=== PATIENT | male | born 1930 | race Caucasian/White ===

== ENCOUNTER → 2016-03-05 | Outpatient (CLI) | payer MEDICARE | LOC: GMAM 16:59 | PROVIDERS: ATTEND Family Medicine | DX: D53.9 Nutritional anemia, unspecified (principal) ==

== ENCOUNTER 2017-02-23 17:41 | Emergency (ER) | payer MEDICARE ==
--- NOTE | 2017-02-23 18:01 | ED.PDOC ---
History of Present Illness - General Chief Complaint: Trauma Stated Complaint: Fell, laceration to head Time Seen by Provider: 02/23/17 17:59 Source: EMS notes reviewed, family - - History of Present Illness Initial Comments: Manny Humphries 86 y/o male brought by ems after slipping while going to the bathroom with walker and lost his footing slipped and falling at home and head landed on the coffee table was at home with him and she noted blood on his scalp.No LOC,no syncopal episode,Then EMS was then called up Occurred: this evening Injuries/Pain Location: head - scalp Loss of Consciousness: no loss of consciousness Improving Factors: nothing Worsening Factors: nothing Associated Symptoms (Fall): denies symptoms Allergies/Adverse Reactions: Allergies NO KNOWN ALLERGY Allergy (Verified 05/30/15 18:28) Home Medications: Ambulatory Orders Apixaban [Eliquis] 5 mg PO DAILY 05/30/15 Atorvastatin Calcium [Lipitor] 10 mg PO DAILY 02/23/17 Finasteride [Proscar] 5 mg PO DAILY 02/23/17 Metoprolol Succinate [Metoprolol Succinate ER] 100 mg PO DAILY 02/23/17 Review of Systems - Review of Systems Constitutional: States: no symptoms reported EENTM: States: no symptoms reported Respiratory: States: no symptoms reported Cardiology: States: no symptoms reported Gastrointestinal/Abdominal: States: no symptoms reported Genitourinary: States: no symptoms reported Musculoskeletal: States: no symptoms reported Skin: States: see HPI, other - scalp Neurological: States: no symptoms reported Past Medical History (General) - Patient Medical History Hx Seizures: No Hx Stroke: No Hx Asthma: No Hx of COPD: Yes Hx Cardiac Disorders: Yes - CHF, A-Fib Hx Congestive Heart Failure: Yes Hx Pacemaker: No Hx Hypertension: Yes Hx Diabetes: No Hx Cancer: Yes - skin Hx MRSA: No Surgical History: pacemaker - Vaccination History Hx Influenza Vaccination: - unknown - Social History Hx Alcohol Use: Yes - wine Hx Substance Use: No Hx Physical Abuse: No Hx Emotional Abuse: No - Activities of Daily Living Grooming Ability: Independent Toileting Ability: Independent Physical Exam - Physical Exam General Appearance: Alert, Comfortable, No apparent distress Head Injury: active bleeding - scalp Eye Exam: bilateral normal ENT Exam: hearing grossly normal, no evidence of ENT injury, no dental injury Peripheral Pulses: radial,right: 2+, radial,left: 2+ Cardiovascular/Respiratory: regular rate, rhythm, normal peripheral pulses, no respiratory distress Gastrointestinal/Abdominal: normal bowel sounds, non tender, soft, no organomegaly Extremity Exam: no evidence of injury, normal range of motion Neurologic: no motor/sensory deficits, alert, oriented x 3 - Kenny Coma Score Best Eye Response ([place]): (4) open spontaneously Best Verbal Response ([place]): (5) oriented Best Motor Response ([place]): (6) obeys commands [place] Total: 15 Progress - Progress Progress: 02/23/17 20:26 Last Vital Signs Temp 97.8 F 02/23/17 20:04 Pulse 62 02/23/17 20:04 Resp 20 02/23/17 20:04 BP 154/92 02/23/17 20:04 Pulse Ox 97 02/23/17 20:04 02/23/17 20:39 Presure dressing applied initially bleeding stopped then went to head ct then on his return to er room no further bleeding noted and was re wrapped again with 4x4 and applied stretch bandage and coban.Patient able to sit himself up the bed without assistance;talking to . - EKG/XRAY/CT CT Ordered: Yes - head no intracranial abnormality Departure - Departure Clinical Impression: Fall against object Laceration of skin of scalp Qualifiers: Encounter type: initial encounter Qualified Code(s): S01.01XA - Laceration without foreign body of scalp, initial encounter Time of Disposition: 20:43 Disposition: Discharge to Home or Self Care Departure Forms: ED Discharge - Pt. Copy, Patient Portal Self Enrollment Instructions: DI for Laceration Repair, DI for Minor Laceration Referrals: Manny Hollingsworth MD [Primary Care Provider] - 1-2 Weeks Home Medications: Ambulatory Orders Apixaban [Eliquis] 5 mg PO DAILY 05/30/15 Atorvastatin Calcium [Lipitor] 10 mg PO DAILY 02/23/17 Finasteride [Proscar] 5 mg PO DAILY 02/23/17 Metoprolol Succinate [Metoprolol Succinate ER] 100 mg PO DAILY 02/23/17 Additional Instructions: RETURN TO EMERGENCY ROOM NEEDED REMOVE DRESSING 02/25/2017
--- NOTE | 2017-02-23 18:44 | CT ---
EXAM DESCRIPTION: Head CLINICAL HISTORY: head contusion COMPARISON: None Available TECHNIQUE: Contiguous axial CT images of the head were obtained. Coronal and sagittal reconstructions were created from the axial data. This exam was performed according to our departmental dose-optimization program, which includes automated exposure control, adjustment of the mA and/or kV according to patient size and/or use of iterative reconstruction technique. FINDINGS: There is soft tissue attenuation in the left superior scalp fat near the vertex. There is a small amount of gas within it, suggesting laceration. There is no evidence of acute mass, mass effect, midline shift or hemorrhage. The ventricles and extra-axial CSF spaces are unremarkable. The brain parenchyma appears normal for the patient's age. No acute abnormalities of the bones is seen. IMPRESSION: No acute intracranial abnormality. Electronically signed by: Shahid Youssef 02/23/2017 6:42 PM [facility]
[2017-02-23 18:53] VITALS: O2SAT 97
[2017-02-23] MEDS ORDERED: NEOMYCIN-BACITRACIN-POLYMYXIN 0.9 GM UD TOP ONE (19:57)
[2017-02-23 20:06] VITALS: BP 154/92; TEMP 97.8
== END 2017-02-23 21:15 | disposition home or self-care (01) ==
LOC: ER 17:41
DX: S01.01XA Laceration without foreign body of scalp, initial encounter (principal); J44.9 Chronic obstructive pulmonary disease, unspecified; I50.9 Heart failure, unspecified; I48.91 Unspecified atrial fibrillation; I11.0 Hypertensive heart disease with heart failure; Z95.0 Presence of cardiac pacemaker; Z85.828 Personal history of other malignant neoplasm of skin; Z79.899 Other long term (current) drug therapy; W01.190A Fall on same level from slipping, tripping and stumbling with subsequent striking against furniture, initial encounter; Y92.009 Unspecified place in unspecified non-institutional (private) residence as the place of occurrence of the external cause; Y93.89 Activity, other specified

== ENCOUNTER 2017-08-01 09:43 | Inpatient (IN) | payer MEDICARE ==
[2017-08-01] MEDS ORDERED: SODIUM CHLORIDE 0.9% 500ML 500 ML IVS ONE (10:06)
--- NOTE | 2017-08-01 10:10 | ED.PDOC ---
History of Present Illness - General Chief Complaint: Trauma Stated Complaint: s/p fall Time Seen by Provider: 08/01/17 10:03 Source: patient - History of Present Illness Timing/Duration: unsure Severity: moderate Improving Factors: nothing Worsening Factors: nothing Associated Symptoms: malaise, weakness, other - possible loss of consciousness Allergies/Adverse Reactions: Allergies NO KNOWN ALLERGY Allergy (Verified 05/30/15 18:28) Home Medications: Ambulatory Orders Apixaban [Eliquis] 2.5 mg PO DAILY 05/30/15 Atorvastatin Calcium [Lipitor] 10 mg PO BEDTIME 02/23/17 Metoprolol Succinate [Metoprolol Succinate ER] 100 mg PO DAILY 02/23/17 Carbamide Peroxide Otic [Debrox Otic] 4 drop OT PRN 08/01/17 Cyanocobalamin Inj [Vitamin B-12 Inj] 1 ml IM MONTHLY 08/01/17 Folic Acid 1 mg PO DAILY 08/01/17 Furosemide [Lasix] 20 mg PO PRN 08/01/17 Ibuprofen [Advil] 1 - 2 mg PO Q6H PRN 08/01/17 Potassium Chloride [Micro-K] 8 meq PO PRN 08/01/17 Review of Systems - Review of Systems Constitutional: States: weakness. Denies: chills, fever EENTM: States: no symptoms reported Respiratory: Denies: cough, short of breath Cardiology: States: syncope. Denies: chest pain, edema Gastrointestinal/Abdominal: Denies: abdominal pain, nausea, vomiting Genitourinary: States: no symptoms reported Musculoskeletal: States: muscle pain Skin: States: other - abrasions to L arm Neurological: States: weakness. Denies: headache Endocrine: States: no symptoms reported Hematologic/Lymphatic: States: no symptoms reported Past Medical History (General) - Patient Medical History Hx Seizures: No Hx Stroke: No Hx Asthma: No Hx of COPD: Yes Hx Cardiac Disorders: Yes - CHF, A-Fib Hx Congestive Heart Failure: Yes Hx Pacemaker: No Hx Hypertension: Yes Hx Diabetes: No Hx Cancer: Yes - skin Hx MRSA: No - Vaccination History Hx Influenza Vaccination: - unknown Hx Pneumococcal Vaccination: - unknown - Social History Hx Tobacco Use: Yes Hx Alcohol Use: Yes - wine Hx Substance Use: No Hx Physical Abuse: No Hx Emotional Abuse: No Family Medical History - Family History Father Family History: Unknown Living Status: Age at (years of age): 72 Cause of : [place] Physical Exam - Physical Exam General Appearance: Alert, Comfortable, No apparent distress Eye Exam: bilateral normal Ears, Nose, Throat: normal ENT inspection Neck: non-tender, full range of motion Respiratory: chest non-tender, lungs clear, normal breath sounds Cardiovascular/Chest: no edema, tachycardia, irregularly irregular Gastrointestinal/Abdominal: normal bowel sounds, non tender, soft Extremity: normal range of motion, no pedal edema, no calf tenderness, other - abrasions to L forearm Neurologic: alert, normal mood/affect, oriented x 3 Skin Exam: normal color, warm/dry Progress - EKG/XRAY/CT EKG: Atrial, Fibrillation, LBBB Comments: rate 114, QRS 154, QTc 526 Departure - Departure Clinical Impression: Alcohol abuse Sepsis Qualifiers: Sepsis type: sepsis due to unspecified organism Qualified Code(s): A41.9 - Sepsis, unspecified organism UTI (urinary tract infection) due to urinary indwelling catheter Qualifiers: Indwelling urinary catheter type: indwelling urethral catheter Encounter type: initial encounter Qualified Code(s): T83.511A - Infection and inflammatory reaction due to indwelling urethral catheter, initial encounter; N39.0 - Urinary tract infection, site not specified Atrial fibrillation Qualifiers: Atrial fibrillation type: chronic Qualified Code(s): I48.2 - Chronic atrial fibrillation Disposition: Admit Patient Condition: Serious Departure Forms: ED Discharge - Pt. Copy, Patient Portal Self Enrollment Instructions: DI for Trauma Referrals: Manny Hollingsworth MD [Primary Care Provider] - 1-2 Weeks Home Medications: Ambulatory Orders Apixaban [Eliquis] 2.5 mg PO DAILY 05/30/15 Atorvastatin Calcium [Lipitor] 10 mg PO BEDTIME 02/23/17 Metoprolol Succinate [Metoprolol Succinate ER] 100 mg PO DAILY 02/23/17 Carbamide Peroxide Otic [Debrox Otic] 4 drop OT PRN 08/01/17 Cyanocobalamin Inj [Vitamin B-12 Inj] 1 ml IM MONTHLY 08/01/17 Folic Acid 1 mg PO DAILY 08/01/17 Furosemide [Lasix] 20 mg PO PRN 08/01/17 Ibuprofen [Advil] 1 - 2 mg PO Q6H PRN 08/01/17 Potassium Chloride [Micro-K] 8 meq PO PRN 08/01/17 Critical Care Note - Critical Care Note Total Time (mins): 35 Comments: presentation: weakness with a fall; Findings: UTI, LFT's elevated, elevated serum lactate; Actions: Saline iv bolus, blood and urine cultures, IV Rocephin , admission; Systems at risk: cardiovascular, urinary
--- NOTE | 2017-08-01 11:04 | RAD ---
EXAM: XR Chest, 1 View CLINICAL HISTORY: The patient is 87 years old and is Male; weakness TECHNIQUE: Frontal view of the chest. COMPARISON: Prior study from 05/26/2015 FINDINGS: LUNGS: No focal consolidation is identified. Patient's chin obscures the medial lung apices. PLEURAL SPACE: There is no pneumothorax. No pleural effusions are present. HEART: Unremarkable. No cardiomegaly. MEDIASTINUM: Unremarkable. BONES/JOINTS: Unremarkable .No acute fracture noted. VASCULATURE: The aortic knob is calcified. The aorta is tortuous. TUBES, LINES AND DEVICES: There is a new single lead left-sided pacemaker in place with leads projecting over the RIGHT ventricle. Electrocardiogram leads are again noted. UPPER ABDOMEN: There is mild elevation of the LEFT hemidiaphragm. 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 IMPRESSION: No active disease is seen in the chest. New pacemaker as described. Electronically signed by: Hussain Tineo MD 08/01/2017 11:01 AM CDT Electronically signed by: Hussain Tineo MD 08/01/2017 11:03 AM CDT
[2017-08-01] MEDS ORDERED: POVIDONE IODINE 10 % 15 ML UD TOP ONE (11:08)
[2017-08-01] MEDS ORDERED: cefTRIAXone SODIUM 1 GM in SODIUM CHL 0.9% 50ML MIN-BAG+ 50 ML IVPB ONE (11:27)
[2017-08-01] MEDS ORDERED: cefTRIAXone SODIUM 1 GM VIAL ONE (11:28)
[2017-08-01] MEDS ORDERED: SODIUM CHL 0.9% 50ML MIN-BAG+ 50 ML IVPB ONE ×3 (11:28→19:51)
--- NOTE | 2017-08-01 13:19 | HP ---
SUPERVISING PHYSICIAN: Manny Hollingsworth M.D. CHIEF COMPLAINT: Fall. HISTORY OF PRESENT ILLNESS: Mr. Humphries is an 87 year-old male patient that presented to the Emergency Room via EMS today. He had gotten up to go to the bathroom and fell between the toilet and tub, and was unable to stand up. On arrival, EMS stood him up at which time he had a significant decrease in his blood pressure and he passed out. He presented to the Emergency Department and denied any other complaints. No chest pains. No shortness of breath. He does have a history of a chronic indwelling Eason catheter. His also notes that the patient has been falling several times in the last week and over the last several weeks has not eaten any significant amount of nutrition. He also has a habit of drinking 3 to 6 glasses of wine a day. His workup in the Emergency Department showed that he was afebrile, temperature 97.7 and his white count was normal, but there was a left shift noted. Chemistries showed that he had a lactic acid of 4.5 as well as his liver functions were elevated. Urinalysis showed that he had a small amount of blood on the dipstick with leukoesterase, 5 to 10 WBCs and 1+ bacteria. His reports that his catheter was last changed by home health this past Wednesday. X-ray was completed and per radiology interpretation of a single view chest there was no active disease seen in the chest. There was a pacemaker noted. Hemodynamically the patient was shown to be normotensive with a blood pressure initially of 131/70 with heart rate 109. He was satting 99% on room air. Given the patient's underlying chronic illness and multiple co- morbidities and the lactic acid that was elevated along with the urinary tract infection, there were concerns for possible sepsis. Blood cultures were completed and he was started initially on Rocephin and now is going to be admitted to the Medical/Surgical floor for further initiation of sepsis protocol for concerns for urinary tract infection resulting in sepsis syndrome. The patient was admitted in stable condition. PAST MEDICAL HISTORY: 1. Atrial fibrillation on Eliquis. 2. History of congestive heart failure with a chronic diastolic mechanism due to hypertension and most recent echocardiogram showing to be 04/2015 with an ejection fraction of 60%. 3. Hyperlipidemia. 4. Chronic alcohol abuse, approximately 6 glasses of wine per day. 5. Dementia. 6. 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 PAST SURGICAL HISTORY: 1. Right kidney stone removal. 2. Detached retina in 2000. 3. Pacemaker implantation. HOME MEDICATIONS: 1. Potassium chloride 8 mEq p.r.n. 2. Lopressor 100 mg daily. 3. Ibuprofen 1 to 2 every 6 hours as needed. 4. Lasix 20 mg daily as needed. 5. Folic acid 1 mg daily. 6. Vitamin B12 one injection monthly. 7. Debrox 4 drops both eyes b.i.d. as needed. 8. Lipitor 10 mg at bedtime. 9. Eliquis 2.5 mg daily. ALLERGIES: NO KNOWN DRUG ALLERGIES. FAMILY HISTORY: Father at age 72 from a heart attack. Mother with a history of chronic obstructive pulmonary disease. 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 He is and has 3 children. He currently lives in [place] with his . He has had a history of smoking but quit previously in 1969. He has a history of alcohol abuse and currently drinks 6 to 7 glasses or wine a day. REVIEW OF SYSTEMS: Difficult to obtain secondary to the patient's significantly decreased hearing. CONSTITUTIONAL: No reported fevers but he has general malaise and ongoing weakness. HEENT: History of severe hearing deficit but no noted nasal congestion, sore throat or ear aches. RESPIRATORY: No reported coughing, wheezing or shortness of breath. CARDIOVASCULAR: No reported edema, chest pains or palpitations. GASTROINTESTINAL: No reported nausea, vomiting, abdominal pains, constipation or diarrhea. GENITOURINARY: Has a chronic Eason in place having been last changed this past Wednesday. INTEGUMENT: Bruises easily as he is on Eliquis and has old abrasions to the left arm from multiple falls. NEUROLOGIC: He does have bilateral weakness. No focal motor deficits noted. No headaches. No seizure activities. No ataxia. PHYSICAL EXAMINATION: VITAL SIGNS: Temperature 98.3, pulse 87, blood pressure 141/87, respirations 16 , satting 97% on room air. Admission weight is 103.0 kg. GENERAL: The patient is disheveled. Appears to be in no acute distress. HEENT: Tympanic membranes are clear bilaterally. Oropharynx was pink with some dry mucosal membranes but no lesions. NECK: Supple, non-tender with full range of motion. CHEST: Lungs were clear to auscultation bilaterally without any rhonchi, wheezing or rales. CARDIOVASCULAR: Slightly irregular rate and rhythm but no palpitations or rubs or discernible murmurs. GASTROINTESTINAL: No tenderness on palpation. No rebound tenderness. Abdomen is soft and obese with otherwise normal bowel sounds. EXTREMITIES: No clubbing, cyanosis or edema. There are abrasion on the left arm. NEUROLOGIC: He is alert and oriented times three. Cranial nerves II-XII are grossly intact. Facial features were symmetrical. Extraocular movements are within normal limits. There was no notable nystagmus. LABORATORY: CBC showed a white count of 6,800 with hemoglobin 13.8, hematocrit 40.1, platelet count 119,000. RBC indices indicate a macrocytic/hyperchromic presentation and there is a left shift on the differential. Blood gas analysis showed a normal pH of 7.37, bicarb 17, PCO2 was 31, PO2 was 199 with ABG on room air satting 95%. Carboxyhemoglobin 0.3. Chemistries showed hyponatremia of 130 with an elevated anion gap of 20.3, creatinine 1.0, BUN 9, glucose 94, calcium 9.0, lactic acid initially was elevated at 4.5. Liver functions showed to be elevated with a total bilirubin of 1.3, AST 214, ALT 144. Urinalysis showed a trace of intact blood with trace blood with small amount of leukocyte esterase with 0 to 1 RBCs, 5 to 10 WBCs, no epithelials, 1+ bacteria. He did have 1 occult blood in the E. R. that was negative. MICROBIOLOGY: Blood cultures are pending. Urine culture is pending. RADIOLOGY: Initially in the Emergency Department he had a chest x-ray and per radiology interpretation showed no active disease in the chest. New pacemaker was noted. ASSESSMENT: 1. Sepsis with concern for possible bacteremia secondary to underlying urinary tract infection with the patient having a history of chronic indwelling Eason catheter. 2. Recent multiple falls same level with no mention of loss of consciousness likely secondary to progressive weakness due to poor nutritional intake and current acute urinary tract infection with sepsis syndrome. 3. Sepsis syndrome with elevated lactic acid, elevated liver function tests, tachycardia and source of infection noted to be urinary tract infection with cultures pending. 4. Chronic alcohol abuse with a history of drinking approximately 4 to 6 glasses of wine daily. 5. Severe hearing loss bilaterally. 6. Chronic atrial fibrillation with controlled ventricular rate on Eliquis. 7. Dementia which is exacerbated by an ongoing alcoholism. 8. Chronic congestive heart failure with a diastolic dysfunction grade 2 with last echocardiogram showing in 04/2015 with an ejection fraction of 60%. 9. Electrolyte imbalance to include a mild hyponatremia. 10. Metabolic acidosis with partial compensation with an elevated lactic acid as well as an elevated anion gap. PLAN: The patient is going to be admitted for sepsis protocol with concerns for possible bacteremia secondary to urinary tract infection. Urine cultures were collected. Blood cultures were also collected and then he was started on antibiotics initially to include Rocephin. Given his lactic acid is elevated at 4.5 and the patient does have a longstanding history of chronic Eason catheter with infections last noted to be Enterococcus and a history of alcoholism, will start the patient on Meropenem and await final culture results to further target antibiotic therapy. Once those are back, we can certainly deescalate his regimen according to the current sensitivity available. I will go ahead and give him another liter of fluid over 2 hours and start him on maintenance fluid with D5 normal saline with 20 of potassium running at 80 an hour. I will plan to recheck his lactic acid in 4 to 6 hours and adjust fluids and treatment according to results. Right now the patient is showing to be hemodynamically stable with a controlled ventricular rate. Will continue with his home medications as appropriate including Eliquis for DVT prophylaxis. The patient will need a physical therapy consultation due to his multiple falls. Will need to closely observe the patient for any signs or symptoms of early alcohol withdrawal and DTs. I will also exchange the current Eason for a clean Eason and do another urinalysis. Will anticipate his length of stay to be 2 to 3 days. The patient does live with his but is very little assistance and the patient will possibly need ongoing physical therapy given his increase in weakness and current alcoholism along with severe deconditioning and multiple falls. He will also need a nutritional consultation. I will go ahead and start him on daily banana bag with thiamine and start him on some folic acid. Until discharge, will continue to monitor and treat appropriately. #[id number] [facility]
[2017-08-01] MEDS ORDERED: SODIUM CHLORIDE 0.9% (FLUSH) 10 ML SYG IV PRN (13:55)
[2017-08-01] MEDS ORDERED: IBUPROFEN 400 MG TAB PO PRN (13:58)
[2017-08-01] MEDS ORDERED: KCL 20MEQ/D5NS 1,000 ML IVS PRN (14:00)
[2017-08-01] MEDS ORDERED: SODIUM CHLORIDE 0.9% 1000ML 1,000 ML IVS ONE (14:01)
[2017-08-01] MEDS: IV SET AND CAP CHANGE INJ INJ SCH (14:13)
[2017-08-01] MEDS ORDERED: MEROPENEM 1 GM VIAL IVPB ONE ×2 (14:15→19:52)
[2017-08-01] MEDS: MEROPENEM 1 GM in SODIUM CHL 0.9% 50ML MIN-BAG+ 50 ML IVPB SCH ×2 (14:16→22:23)
[2017-08-01] MEDS ORDERED: CARBAMIDE PEROXIDE OTIC 15 ML BTTL OTIC PRN (14:30)
[2017-08-01] MEDS ORDERED: PANTOPRAZOLE SODIUM IV 40 MG VIAL IV ONE (18:29)
--- NOTE | 2017-08-01 18:31 | PCM.CORE ---
Physician DVT/VTE - Prophylaxis Currently: Patient already on anticoagulation therapy - marilin - Nurse DVT Assessment & Total Each Risk Factor Represents 3 Points: Age over 75 years, Medical PT with Hx of NM, CHF, Severe infection/sepsis Each Risk Factor Represents 1 Point: Medical PT at Bed Rest DVT Assessment Score: 7 - 5 or more Very High Risk Treatments: Early Ambulation *, Sequential Compression Device
[2017-08-01] MEDS ORDERED: THIAMINE HCL INJ 100 MG/ML VIAL ONE (18:35)
[2017-08-01] MEDS ORDERED: SODIUM CHLORIDE 0.9% 1000ML 1,000 ML ONE (18:35)
[2017-08-01] MEDS ORDERED: MULTIPLE VITAMIN 10 ML VIAL ONE (18:36)
[2017-08-01] MEDS: MULTIPLE VITAMIN INJ 10 ML, THIAMINE HCL INJ 100 MG in SODIUM CHLORIDE 0.9% 1000ML 1,00... IVS SCH (18:43)
[2017-08-01] MEDS: ATORVASTATIN 10 MG TAB PO SCH (20:36)
[2017-08-01] MEDS ORDERED: chlordiazePOXIDE HCL 25 MG CAP PO ONE (23:03)
[2017-08-02] MEDS ORDERED: SODIUM CHL 0.9% 50ML MIN-BAG+ 50 ML IVPB ONE ×3 (05:13→22:49)
[2017-08-02] MEDS ORDERED: MEROPENEM 1 GM VIAL IVPB ONE ×3 (05:14→22:49)
[2017-08-02] MEDS: MEROPENEM 1 GM in SODIUM CHL 0.9% 50ML MIN-BAG+ 50 ML IVPB SCH ×3 (06:07→22:52)
[2017-08-02] MEDS ORDERED: PANTOPRAZOLE SODIUM IV 40 MG VIAL IV SCH (06:30)
[2017-08-02] MEDS: METOPROLOL TARTRATE 50 MG TAB PO SCH (07:38)
[2017-08-02] MEDS: FOLIC ACID 1 MG TAB PO SCH (08:44)
[2017-08-02] MEDS: APIXABAN 2.5 MG TAB PO SCH (08:44)
[2017-08-02] MEDS ORDERED: METOPROLOL SUCCINATE XL 100 MG TAB PO SCH (09:00)
[2017-08-02] MEDS: DEX 5% W/NACL 0.9% 1000ML 1,000 ML IVS PRN (11:56)
--- NOTE | 2017-08-02 13:28 | PN ---
SUPERVISING PHYSICIAN: Ashish De Souza MD DATE: 08/02/17 SUBJECTIVE: The patient is very, very hard of hearing, but he indicates that he feels okay. In speaking with his at the bedside as well as the nurses, the patient has not been eating very much. He has a barium swallow study tomorrow ordered. Additionally, his was concerned regarding some sedative medications that he got. She feels like he may have gotten too much, however, he is completely alert at this time. He was quite fidgety and getting confused and probably going towards alcohol withdrawal, so Librium was started, 50 mg q.i.d. I have spoken with his and we may adjust that a little bit. OBJECTIVE: VITAL SIGNS: Blood pressure 117/73. Heart rate 72. Respiratory rate 16. Temperature 98.0. Oxygen saturation 97%. GENERAL: Mr. Humphries is an 87-year-old male patient who is in no active distress currently. NEUROLOGIC: The patient is very hard of hearing, but alert and follows commands. There are no focal deficits. LUNGS: Diminished in the bases, otherwise clear to auscultation bilaterally. CARDIOVASCULAR: Regular rate and rhythm. Normal S1, S2. ABDOMEN: Soft, obese. Positive bowel sounds. EXTREMITIES: Lower extremities with trace ankle edema. Pulses 2+. Capillary refill is less than 2 seconds. LABORATORY: White count 4.7, hemoglobin 11.6, hematocrit 33.1, platelet count 81. Chemistries show sodium 136, potassium 4.2, chloride 100, CO2 24, BUN 12, creatinine 0.99, glucose 114, calcium 8.6, total bilirubin 1.8, AST 96, ALT 94. Cultures are still pending. ASSESSMENT: 1. Sepsis secondary to urinary tract infection. 2. Recent multiple falls. 3. Chronic alcohol abuse. 4. Severe hearing loss. 5. Chronic atrial fibrillation status post pacemaker placement on Eliquis therapy. 6. Dementia. 7. History of diastolic heart failure without acute exacerbation. 8. Electrolyte imbalance. PLAN: At this point, I have adjusted his IV fluids. He is still going to get his banana bag, but also get some additional IV fluids. His urine output is a little bit on the low side. I feel like he is still dry. I discuss with his regarding his Librium. I am going to half a dose, so he is going to get 25 mg of Librium 3 times a day. We will see if he is a little bit less somnolent in her view. To me, he is actually completely alert at this time, but she feels like it is "breaking his spirit." I did indicate to her that he runs of the risk of having alcohol withdrawals due to his chronic alcohol consumption. She is aware of this and aware that he may need the higher dose. Cultures are still pending, so we will continue the current antibiotics. We will recheck labs in the morning as well. His daughter in law is here, and suggests he may need LTAC versus rehab at discharge, which I agree with his recent falls, he definitely may need that as he is too much for his to care for at this time. #[id number] [facility]
[2017-08-02] MEDS: chlordiazePOXIDE HCL 25 MG CAP PO SCH ×2 (14:52→20:33)
[2017-08-02] MEDS ORDERED: FUROSEMIDE INJ 20 MG/2 ML VIAL IV ONE (17:41)
[2017-08-02] MEDS ORDERED: SODIUM CHLORIDE 0.9% 1000ML 1,000 ML ONE (17:55)
[2017-08-02] MEDS ORDERED: THIAMINE HCL INJ 100 MG/ML VIAL ONE (17:55)
[2017-08-02] MEDS ORDERED: MULTIPLE VITAMIN 10 ML VIAL ONE (17:55)
[2017-08-02] MEDS: MULTIPLE VITAMIN INJ 10 ML, THIAMINE HCL INJ 100 MG in SODIUM CHLORIDE 0.9% 1000ML 1,00... IVS SCH (18:00)
[2017-08-02] MEDS: ATORVASTATIN 10 MG TAB PO SCH (20:33)
[2017-08-02] MEDS ORDERED: chlordiazePOXIDE HCL 25 MG CAP PO SCH (23:55)
[2017-08-03] MEDS ORDERED: SODIUM CHL 0.9% 50ML MIN-BAG+ 50 ML IVPB ONE ×3 (05:41→20:23)
[2017-08-03] MEDS ORDERED: MEROPENEM 1 GM VIAL IVPB ONE ×3 (05:41→20:23)
[2017-08-03] MEDS: DEX 5% W/NACL 0.9% 1000ML 1,000 ML IVS PRN ×2 (05:53→16:30)
[2017-08-03] MEDS: MEROPENEM 1 GM in SODIUM CHL 0.9% 50ML MIN-BAG+ 50 ML IVPB SCH ×3 (05:53→22:03)
[2017-08-03] MEDS: PANTOPRAZOLE SODIUM TAB 40 MG PO SCH (06:02)
[2017-08-03] MEDS: METOPROLOL TARTRATE 50 MG TAB PO SCH (07:36)
[2017-08-03] MEDS ORDERED: MAGNESIUM SULFATE PREMIX 2GM 2 GM in PREMIX BAG 1 BAG IVPB ONE (08:25)
[2017-08-03] MEDS ORDERED: MAGNESIUM SULFATE PREMIX 2GM 50 ML IVPB ONE (08:42)
[2017-08-03] MEDS: chlordiazePOXIDE HCL 25 MG CAP PO SCH ×3 (08:47→20:37)
[2017-08-03] MEDS: APIXABAN 2.5 MG TAB PO SCH (08:47)
[2017-08-03] MEDS: FOLIC ACID 1 MG TAB PO SCH (08:48)
[2017-08-03] MEDS ORDERED: KCL 20MEQ/WATER FOR INJ 100ML 20 MEQ in PREMIX BAG 1 BAG IVPB ONE (09:30)
[2017-08-03] MEDS ORDERED: KCL 20MEQ/WATER FOR INJ 100ML 100 ML IVPB ONE (10:10)
--- NOTE | 2017-08-03 10:49 | PN ---
SUPERVISING PHYSICIAN: Ashish De Souza MD DATE: 08/03/17 SUBJECTIVE: The son is at the bedside. It is reported that he slept well overnight. I was not notified by the nurses of any adverse events overnight. He is in bed and very hard of hearing, but when I yell and talk to him, he states he feels okay. OBJECTIVE: VITAL SIGNS: Blood pressure 124/79. Heart rate 95. Respiratory rate 16. Temperature 97.6. Oxygen saturation 99%. GENERAL: Mr. Humphries is an 87-year-old male patient who is in no severe distress currently. NEUROLOGIC: The patient is hard of hearing, but when you basically yell he follows commands and there are no focal deficits. LUNGS: A little bit diminished in the bases, but otherwise clear to auscultation bilaterally. CARDIOVASCULAR: Regular rate and rhythm. Normal S1, S2. ABDOMEN: Soft. Positive bowel sounds. No tenderness to palpation. GENITOURINARY: Deferred. EXTREMITIES: Lower extremities with trace ankle edema. Pulses 2+. Capillary refill is less than 2 seconds. LABORATORY: White count 4.0, hemoglobin 11.4, hematocrit 33.5, platelet count 73. Chemistries show sodium 134, potassium 3.3, chloride 101, CO2 27, BUN 12, creatinine 1.06, glucose 117, calcium 8.4, total bilirubin 1.5. Urine culture preliminary showing gram negative rods. ASSESSMENT: 1. Sepsis secondary to gram negative urinary tract infection. 2. Multiple falls. 3. Chronic alcohol abuse. 4. Severe hearing loss. 5. Chronic atrial fibrillation status post pacemaker placement on Eliquis therapy. 6. Dementia. 7. History of diastolic heart failure without acute exacerbation. 8. Electrolyte imbalance. PLAN: I am probably going to slow his IV fluids down at this time. His urine output was a little bit low yesterday, so I did give him a small dose of Lasix and that improved his urine output. I did reduce his Librium yesterday and he seems to be doing quite well with this with no agitation or signs of delirium tremors. He is on Merrem right now and I am going to continue this until final results of the cultures are back. He has a barium swallow study scheduled for today. We probably need to start getting a game plan on rehab versus LTAC versus Swing Bed for this patient. Physical therapy has been ordered as well to evaluate the patient. [facility][id number] [facility]
--- NOTE | 2017-08-03 17:05 | RAD ---
EXAM DESCRIPTION: Barium Swallow: Rad-Fluoroscopy. CLINICAL HISTORY: dysphagia COMPARISON: None TECHNIQUE:. Technically difficult study due to patient difficulty entering, extreme weakness and unable to stand. The patient swallowed heavy density barium under fluoroscopic visualization with a straw. The images were obtained with the patient right decubitus. Patient drank medium density barium through a straw in the semi-prone position. 120 fluoroscopic cine loop images. 4 static fluoroscopic images. Total fluoroscopy time was 3 minutes. DAP: 27.3 Gy-cm2.. FINDINGS: No laryngeal penetration or aspiration. Moderately weak primary peristaltic wave with secondary and tertiary contractions in the mid and distal esophagus. No gastroesophageal obstruction. Minimal distention of the stomach with no gastroduodenal obstruction. Contrast reached the mid jejunum. Marked gastroesophageal reflux to the level of the thoracic inlet. No mass effect on the esophagus. No obvious intrinsic lesions. IMPRESSION: Limited study due to patient physical status with exam done with patient in the semiprone right decubitus position drinking with a straw. No laryngeal aspiration. No gastroesophageal or gastroduodenal obstruction. Marked gastroesophageal reflux. Recommendations: Patient feedings should be sitting with adequate amount of time after meals and drinking before returning to bed or reclining position. If feeding issues continue, consider modified barium swallow examination with speech-language pathologist supervision. Electronically signed by: Shahid Brnener MD 08/03/2017 5:04 PM CDT
[2017-08-03] MEDS ORDERED: SODIUM CHLORIDE 0.9% 1000ML 1,000 ML ONE (18:11)
[2017-08-03] MEDS ORDERED: THIAMINE HCL INJ 100 MG/ML VIAL ONE (18:12)
[2017-08-03] MEDS ORDERED: MULTIPLE VITAMIN 10 ML VIAL ONE (18:12)
[2017-08-03] MEDS: MULTIPLE VITAMIN INJ 10 ML, THIAMINE HCL INJ 100 MG in SODIUM CHLORIDE 0.9% 1000ML 1,00... IVS SCH (18:19)
[2017-08-03] MEDS: ATORVASTATIN 10 MG TAB PO SCH (20:37)
[2017-08-03] MEDS ORDERED: FUROSEMIDE INJ 20 MG/2 ML VIAL IV ONE (22:40)
[2017-08-04] MEDS: DEX 5% W/NACL 0.9% 1000ML 1,000 ML IVS PRN (03:27)
[2017-08-04] MEDS ORDERED: SODIUM CHL 0.9% 50ML MIN-BAG+ 50 ML IVPB ONE ×2 (06:03→07:49)
[2017-08-04] MEDS ORDERED: MEROPENEM 1 GM VIAL IVPB ONE ×2 (06:03→07:50)
[2017-08-04] MEDS: MEROPENEM 1 GM in SODIUM CHL 0.9% 50ML MIN-BAG+ 50 ML IVPB SCH (06:05)
[2017-08-04] MEDS: PANTOPRAZOLE SODIUM TAB 40 MG PO SCH (06:05)
[2017-08-04] MEDS: METOPROLOL TARTRATE 50 MG TAB PO SCH (08:06)
[2017-08-04] MEDS ORDERED: POTASSIUM CHLORIDE 20 MEQ TAB PO ONE (08:11)
[2017-08-04] MEDS ORDERED: MAGNESIUM SULFATE PREMIX 2GM 2 GM in PREMIX BAG 1 BAG IVPB ONE (08:11)
[2017-08-04] MEDS ORDERED: MAGNESIUM SULFATE PREMIX 2GM 50 ML IVPB ONE (08:22)
[2017-08-04] MEDS: chlordiazePOXIDE HCL 25 MG CAP PO SCH ×3 (08:37→21:40)
[2017-08-04] MEDS: APIXABAN 2.5 MG TAB PO SCH (08:37)
[2017-08-04] MEDS: FOLIC ACID 1 MG TAB PO SCH (08:37)
[2017-08-04] MEDS ORDERED: KCL 20MEQ/D5 1/2NS 1,000 ML IVS PRN (09:08)
--- NOTE | 2017-08-04 09:45 | PN ---
SUPERVISING PHYSICIAN: Ashish De Souza MD DATE: 08/04/17 SUBJECTIVE: The patient is lying in bed. He is very hard of hearing. He reports he had a good night. He has no nausea, vomiting or shortness of breath. His family is anticipating that he will be discharged to either Swing Bed or to a snf at discharge and we are anticipating discharge either tomorrow or Wednesday, depending on his clinical response as well as the availability of a snf bed. OBJECTIVE: VITAL SIGNS: Afebrile. Heart rate 84. Blood pressure 118/71. Respiratory rate 16. O2 saturation 97%. RESPIRATORY: Essentially clear to auscultation bilaterally. Somewhat diminished at the bases. CARDIAC: Regular rate, irregular rhythm. GASTROINTESTINAL: Abdomen is soft, nondistended, nontender. Bowel sounds are positive. EXTREMITIES: No cyanosis, clubbing or edema. NEUROLOGIC: Awake, alert and very hard of hearing. He answers simple questions appropriately. LABORATORY: WBCs 4.9, hemoglobin 11.3, hematocrit 33.5, platelet count improved to 82. Sodium 134, potassium 3.2, chloride 103, carbon dioxide 23, BUN 9, creatinine 0.77, calcium 8.2, magnesium 1.6. He has had three negative stool occult bloods. Urine culture final is Citrobacter species and he is presently on Merrem. His preliminary blood cultures show no growth after 48 hours. All other labs and films have been reviewed via the EMR. ASSESSMENT: 1. Sepsis secondary to gram negative urinary tract infection. 2. Multiple falls. 3. Chronic alcohol abuse. 4. Severe hearing loss. 5. Chronic atrial fibrillation status post pacemaker placement on Eliquis therapy. 6. Dementia. 7. History of diastolic heart failure without acute exacerbation. 8. Electrolyte imbalance. PLAN: We will continue present supportive care. I have decreased his IV fluids. At this time, he is getting magnesium and potassium supplementation. He will continue with Librium as ordered as he is doing well with it and has had no agitation or sign of delirium tremors. We will continue plans for his discharge with his family to a snf or to rehab or possibly even Swing Bed. The family will be contacted again today. We will need to change his antibiotics, most likely we will change him to Levaquin as there is sensitivity to that on his culture and sensitivities. We will continue to monitor the patient closely and follow as needed. Dr. De Souza is the collaborating physician and available for consultation. [facility][id number] [facility]
[2017-08-04] MEDS ORDERED: levoFLOXacin 500MG IV 100 ML IVPB ONE (09:59)
[2017-08-04] MEDS: levoFLOXacin 500MG IV 500 MG in PREMIX BAG 1 BAG IVPB SCH (10:01)
[2017-08-04] MEDS: IV SET AND CAP CHANGE INJ INJ SCH (14:49)
[2017-08-04] MEDS ORDERED: SODIUM CHLORIDE 0.9% 1000ML 1,000 ML ONE (18:35)
[2017-08-04] MEDS ORDERED: THIAMINE HCL INJ 100 MG/ML VIAL ONE (18:35)
[2017-08-04] MEDS ORDERED: MULTIPLE VITAMIN 10 ML VIAL ONE (18:36)
[2017-08-04] MEDS: MULTIPLE VITAMIN INJ 10 ML, THIAMINE HCL INJ 100 MG in SODIUM CHLORIDE 0.9% 1000ML 1,00... IVS SCH (19:12)
[2017-08-04] MEDS: ATORVASTATIN 10 MG TAB PO SCH (21:40)
[2017-08-05] MEDS: PANTOPRAZOLE SODIUM TAB 40 MG PO SCH (06:00)
[2017-08-05] MEDS: METOPROLOL TARTRATE 50 MG TAB PO SCH (08:10)
[2017-08-05] MEDS ORDERED: levoFLOXacin 500MG IV 100 ML IVPB ONE (08:23)
[2017-08-05] MEDS: APIXABAN 2.5 MG TAB PO SCH (09:32)
[2017-08-05] MEDS: chlordiazePOXIDE HCL 25 MG CAP PO SCH ×3 (09:32→21:03)
[2017-08-05] MEDS: levoFLOXacin 500MG IV 500 MG in PREMIX BAG 1 BAG IVPB SCH (09:33)
[2017-08-05] MEDS: FOLIC ACID 1 MG TAB PO SCH (09:33)
[2017-08-05] MEDS ORDERED: POTASSIUM CHLORIDE 20 MEQ TAB PO ONE (10:47)
[2017-08-05] MEDS: SODIUM CHLORIDE 0.9% (FLUSH) 10 ML SYG IV SCH ×3 (12:56→21:04)
--- NOTE | 2017-08-05 13:31 | PN ---
SUPERVISING PHYSICIAN: Ashish De Souza MD DATE: 08/06/17 SUBJECTIVE: The patient is lying in his hospital bed. He is asleep. He is very hard of hearing, but he has no complaints overnight. His sons are at the bedside and we have discussed his discharge plan. We are planning to discharge him tomorrow to [facility] for strengthening and conditioning with the physical therapy department. OBJECTIVE: VITAL SIGNS: Afebrile. Heart rate 82. Blood pressure 103/65. Respiratory rate 18. O2 saturation 98% on room air. RESPIRATORY: Diminished at the bases, but otherwise clear to auscultation. CARDIAC: Regular rate, irregular rhythm. GASTROINTESTINAL: Abdomen is soft, nondistended, nontender. Bowel sounds are positive. NEUROLOGIC: Awake, alert and he is very hard of hearing. LABORATORY: WBCs 5.4, hemoglobin 12, hematocrit 35.3. Sodium 135, potassium 3.5, chloride 105, carbon dioxide 23. Magnesium 1.8, calcium 8.5. All other labs and films have been reviewed via the EMR. ASSESSMENT: 1. Sepsis secondary to gram negative urinary tract infection. 2. Multiple falls. 3. Chronic alcohol abuse. 4. Severe hearing loss. 5. Chronic atrial fibrillation status post pacemaker placement on Eliquis therapy. 6. Dementia. 7. History of diastolic heart failure without acute exacerbation. 8. Electrolyte imbalance. PLAN: We will continue present supportive care. I have discontinued his IV and saline locked his IV site. I changed his Levaquin to p.o. We plan on discharge to [facility] tomorrow. He has also received potassium supplementation. I will continue to monitor the patient closely and follow as needed. Dr. De Souza is the collaborating physician and available for consultation. #[id number] [facility]
[2017-08-05] MEDS ORDERED: SODIUM CHLORIDE 0.9% 500ML 500 ML IVS ONE (17:21)
[2017-08-05] MEDS ORDERED: MAGNESIUM HYDROXIDE 30 ML UD PO ONE (17:22)
[2017-08-05] MEDS ORDERED: MULTIPLE VITAMIN 10 ML VIAL ONE (17:22)
[2017-08-05] MEDS ORDERED: SODIUM CHLORIDE 0.9% 1000ML 1,000 ML ONE (17:22)
[2017-08-05] MEDS ORDERED: THIAMINE HCL INJ 100 MG/ML VIAL ONE (17:22)
[2017-08-05] MEDS: MULTIPLE VITAMIN INJ 10 ML, THIAMINE HCL INJ 100 MG in SODIUM CHLORIDE 0.9% 1000ML 1,00... IVS SCH (17:50)
[2017-08-05] MEDS ORDERED: BISACODYL SUPPOSITORY 10 MG PR ONE (20:00)
[2017-08-05] MEDS: ATORVASTATIN 10 MG TAB PO SCH (21:03)
[2017-08-06] MEDS ORDERED: FUROSEMIDE INJ 20 MG/2 ML VIAL IV ONE ×2 (06:30→20:29)
[2017-08-06] MEDS ORDERED: FUROSEMIDE INJ 20 MG/2 ML VIAL ONE (06:32)
[2017-08-06] MEDS: PANTOPRAZOLE SODIUM TAB 40 MG PO SCH (06:36)
[2017-08-06] MEDS: METOPROLOL TARTRATE 50 MG TAB PO SCH (08:36)
[2017-08-06] MEDS: chlordiazePOXIDE HCL 25 MG CAP PO SCH ×2 (08:37→14:57)
[2017-08-06] MEDS: APIXABAN 2.5 MG TAB PO SCH (08:37)
[2017-08-06] MEDS: FOLIC ACID 1 MG TAB PO SCH (08:37)
[2017-08-06] MEDS: SODIUM CHLORIDE 0.9% (FLUSH) 10 ML SYG IV SCH ×2 (08:41→10:45)
[2017-08-06] MEDS ORDERED: levoFLOXacin 500 MG TAB PO SCH (09:00)
[2017-08-06] MEDS ORDERED: POTASSIUM CHLORIDE 20 MEQ TAB PO ONE ×2 (09:40→14:57)
[2017-08-06 10:42] VITALS: BP 164/80; TEMP 98.8; O2SAT 96
--- NOTE | 2017-08-07 20:44 | DS ---
SUPERVISING PHYSICIAN: sAhish De Souza M.D. DISCHARGE DIAGNOSIS: 1. Sepsis secondary to gram negative urinary tract infection related to Citrobacter species showing a sensitivity to Levaquin. 2. Multiple falls. 3. Chronic alcohol abuse. Has been on Librium since admission to the hospital and has had no signs or symptoms of DTs. 4. Severe hearing loss. 5. Chronic atrial fibrillation status post pacemaker placement on Eliquis therapy. 6. Dementia. 7. History of diastolic heart failure without acute exacerbation. 8. Electrolyte imbalance. HISTORY OF PRESENT ILLNESS: This is an 87 year-old male patient who presented to the Emergency Room via EMS. He had gotten up to go to the bathroom and fell between the toilet and tub, and was unable to stand up. EMS stood him up at which time he had a significant decrease in his blood pressure and he passed out. They brought him to the Emergency Department. He had no chest pain or shortness of breath. He does have a history of a chronic indwelling Eason catheter. His told the Emergency Room physician that the patient has been falling several times in the past week and over the last several weeks he has had a very poor appetite and has not eaten very much. He does also drink 3 to 6 glasses of wine daily. In the Emergency Department, he was afebrile, temperature 97.7 and a lactic acid of 4.5 as well as his liver functions were elevated with his total bilirubin of 1.3 with AST 214 and ALT 144. Urinalysis showed that he had a small amount of urine blood leukoesterase, 5 to 10 WBCs and 1+ bacteria. His catheter had just been changed the previous week by home health. X-ray showed no active disease. He does have a pacemaker. He was normotensive with blood pressure 131/70 and heart rate 109. His oxygen saturation was 99% on room air. Due to the patient's chronic underlying illness as well as multiple co-morbidities and an elevated lactic acid along with the urinary tract infection, there were concerns for possible sepsis. Blood cultures were completed. He was started initially on Rocephin. Fluids were given and he was admitted to the hospital. HOSPITAL COURSE: His home medications were restarted. He does have a somewhat chronically low sodium. Today on discharge it is 135. His potassium has been stable. His total bilirubin increased to 1.8 but his AST dropped to 96 and his ALT dropped to 94. He was given Librium 25 mg b.i.d. to prevent delirium tremens. During his stay there were no withdrawal symptoms noted. Preliminary blood cultures showed no growth after 5 days but his urine culture did come back and it was Citrobacter species. He was changed to Levaquin which showed sensitivities to that antibiotic. Due to the patient's chronic illnesses as well as his multiple episodes of falling as well as his 's inability to take care of him at home, it was decided by his family that he would be sent to [facility]. They have accepted him and he will be discharged there today. DISCHARGE PLAN: The patient will be discharged to [facility]. He will have physical therapy. I have restarted his home medications. I have given him a prescription for Levaquin as well as Librium. His Librium will be 25 mg daily for a week. He can also have 25 mg b.i.d. p.r.n. for any signs or symptoms of alcohol withdrawal. I have increased his Lasix to 40 mg daily as well as his potassium to 20 mEq daily. I will have a CMP and a CBC drawn on Wednesday the and he will be seen by Chaim Oliver from Dr. Hollingsworth's office on Wednesday as a hospital followup. He is to return to the hospital or call Dr. Hollingsworth's office for any further problems or complications. He is to resume his diabetic diet. DISCHARGE MEDICATIONS: 1. Lipitor. 2. Debrox otic solution. 3. Folic acid. 4. Ibuprofen. 5. Cyanocobalamin. 6. Metoprolol tartrate. 7. Furosemide. 8. Levaquin. 9. Pantoprazole. 10. Potassium chloride. 11. Librium. 12. Eliquis. We will also need to start him on sliding scale with NovoLog insulin for coverage. #[id number] [facility]
== END 2017-08-06 15:35 | DRG 698 ==
LOC: ER 09:43 → MS 13:18
PROVIDERS: ADMIT Nurse Practitioner Family; ATTEND Nurse Practitioner Acute Care
DX: T83.511A Infection and inflammatory reaction due to indwelling urethral catheter, initial encounter (principal); A41.9 Sepsis, unspecified organism; I50.32 Chronic diastolic (congestive) heart failure; E87.1 Hypo-osmolality and hyponatremia; E87.2 Acidosis; R29.6 Repeated falls; N39.0 Urinary tract infection, site not specified; I48.2 Chronic atrial fibrillation; I11.0 Hypertensive heart disease with heart failure; E78.5 Hyperlipidemia, unspecified; J44.9 Chronic obstructive pulmonary disease, unspecified; F03.90 Unspecified dementia, unspecified severity, without behavioral disturbance, psychotic disturbance, mood disturbance, and anxiety; H91.90 Unspecified hearing loss, unspecified ear; E66.9 Obesity, unspecified; F10.20 Alcohol dependence, uncomplicated; Z79.02 Long term (current) use of antithrombotics/antiplatelets; Z95.0 Presence of cardiac pacemaker; Z79.1 Long term (current) use of non-steroidal anti-inflammatories (NSAID); Z87.891 Personal history of nicotine dependence; Y92.009 Unspecified place in unspecified non-institutional (private) residence as the place of occurrence of the external cause; Z68.24 Body mass index [BMI] 24.0-24.9, adult

== ENCOUNTER 2017-08-22 19:55 | Emergency (ER) | payer MEDICARE ==
--- NOTE | 2017-08-22 20:10 | ED.PDOC ---
History of Present Illness - General Chief Complaint: Blood Pressure Problem Stated Complaint: low blood pressure Time Seen by Provider: 08/22/17 19:58 Source: EMS, [facility] records Exam Limitations: clinical condition, physical impairment - History of Present Illness Initial Comments: Patient is non-communicative and [facility] staff as well as EMS give a brief history. The patient was not at his baseline mental status and seemed "lethargic " compared to normal. His blood pressure was taken and the systolic reported to be in the 70s. EMS arrived and recorded as systolic above 110. Patient was brought to the E.D. for evaluation. No other history is available. Patient has a pacemaker and has atrial fibrillation. He is on Apixiban for that. Timing/Duration: unsure Severity: moderate Improving Factors: nothing, eating Associated Symptoms: denies symptoms Allergies/Adverse Reactions: Allergies NO KNOWN ALLERGY Allergy (Verified 08/22/17 20:10) Home Medications: Ambulatory Orders Atorvastatin Calcium [Lipitor] 10 mg PO BEDTIME 02/23/17 Carbamide Peroxide Otic [Debrox Otic] 4 drop OT BID PRN 08/01/17 Cyanocobalamin Inj [Vitamin B-12 Inj] 1 ml IM MONTHLY 08/01/17 Folic Acid 1 mg PO DAILY 08/01/17 Ibuprofen [Advil] 1 - 2 mg PO Q6H PRN 08/01/17 Metoprolol Tartrate [Lopressor] 100 mg PO DAILY 08/01/17 Apixaban [Eliquis] 2.5 mg PO BID #60 tab 08/06/17 Furosemide Tab [Lasix Tab] 40 mg PO DAILY #30 tab 08/06/17 Pantoprazole Sodium 40 mg PO DAILY #30 tab 08/06/17 Potassium Chloride Tab [K-Dur] 20 meq PO DAILY #30 tab 08/06/17 chlordiazePOXIDE HCL [Librium] 25 mg PO BID #60 cap 08/06/17 levoFLOXacin [Levaquin] 500 mg PO Q24H #7 tab 08/06/17 Past Medical History (General) - Patient Medical History Hx Seizures: No Hx Stroke: No Hx Asthma: No Hx of COPD: No Hx Cardiac Disorders: Yes - CHF, A-Fib Hx Congestive Heart Failure: Yes Hx Pacemaker: Yes Hx Hypertension: Yes Hx Diabetes: No Hx Cancer: Yes - skin Hx MRSA: No - Vaccination History Hx Influenza Vaccination: - unknown Hx Pneumococcal Vaccination: - unknown - Social History Hx Tobacco Use: Yes Hx Alcohol Use: No - ETOH use Hx Substance Use: No Hx Physical Abuse: No Hx Emotional Abuse: No Family Medical History - Family History Father Family History: Unknown Living Status: Age at (years of age): 72 Cause of : DE Physical Exam - Physical Exam General Appearance: Lethargic Eye Exam: bilateral normal Ears, Nose, Throat: other - hearing aids in place, patient is noncommunicative Neck: non-tender, full range of motion, supple Respiratory: lungs clear, normal breath sounds, no respiratory distress Cardiovascular/Chest: normal peripheral pulses, regular rate, rhythm, no edema Gastrointestinal/Abdominal: normal bowel sounds, non tender, soft Back Exam: normal inspection, no CVA tenderness Extremity: normal range of motion, non-tender Neurologic: track helper II-XII nml as tested, no motor/sensory deficits Skin Exam: normal color Lymphatic: no adenopathy Progress - Progress Progress: 08/23/17 00:49 EKG showed atrial fibrillation with RVR. SBP was in the 80s and varied from 60- 80s. Mild UTI with fungal infection found. Patient's BP did not respond well to NS boluses. He did have some measurements in the 80s with some episodes where his son said that he was becoming more at his mental baseline. However, as it got later, the patient preferred to sleep. He was given Ertapenem 1 gram IV x one for the UTI and possible emerging sepsis, started on diflucan 200 mg IV x one but was stopped after 75% was in because we needed the line for faster fluid administration. Urine sent for culture. Patient's rate stayed in the range of 115-130. There was concern about trying to rate control him with Lopressor or Cardizem because of the hypotension. I consulted with [facility] and the patient was accepted for transfer. The patient may need pressors as well as chemical rate control or cardioversion, both of which are not done inpatient here. It was in the patient's best interest to be transferred in case the need for ICU arose. Departure - Departure Clinical Impression: Hypotension, Atrial fibrillation with RVR Disposition: Transfer to Hospital Condition: Fair Departure Forms: ED Discharge - Pt. Copy, Patient Portal Self Enrollment Instructions: DI for High Blood Pressure Diet: other - as per hospitalist Activity: as per physical therapy Referrals: Manny Hollingsworth MD [Primary Care Provider] - 1-2 Weeks Home Medications: Ambulatory Orders Atorvastatin Calcium [Lipitor] 10 mg PO BEDTIME 02/23/17 Carbamide Peroxide Otic [Debrox Otic] 4 drop OT BID PRN 08/01/17 Cyanocobalamin Inj [Vitamin B-12 Inj] 1 ml IM MONTHLY 08/01/17 Folic Acid 1 mg PO DAILY 08/01/17 Ibuprofen [Advil] 1 - 2 mg PO Q6H PRN 08/01/17 Metoprolol Tartrate [Lopressor] 100 mg PO DAILY 08/01/17 Apixaban [Eliquis] 2.5 mg PO BID #60 tab 08/06/17 Furosemide Tab [Lasix Tab] 40 mg PO DAILY #30 tab 08/06/17 Pantoprazole Sodium 40 mg PO DAILY #30 tab 08/06/17 Potassium Chloride Tab [K-Dur] 20 meq PO DAILY #30 tab 08/06/17 chlordiazePOXIDE HCL [Librium] 25 mg PO BID #60 cap 08/06/17 levoFLOXacin [Levaquin] 500 mg PO Q24H #7 tab 08/06/17
[2017-08-22] MEDS ORDERED: SODIUM CHLORIDE 0.9% 250ML 250 ML IVS ONE ×2 (20:18→21:16)
[2017-08-22] MEDS ORDERED: ERTAPENEM 1 GM in SODIUM CHL 0.9% 50ML MIN-BAG+ 50 ML IVPB ONE (21:06)
[2017-08-22] MEDS ORDERED: FLUCONAZOLE IV 200 MG in PREMIX BAG 1 BAG IVPB ONE (21:16)
[2017-08-22] MEDS: SODIUM CHLORIDE 0.9% 1000ML 1,000 ML IVS PRN ×2 (21:21→22:30)
[2017-08-22] MEDS ORDERED: SODIUM CHL 0.9% 50ML MIN-BAG+ 50 ML IVPB ONE (21:32)
[2017-08-22] MEDS ORDERED: ERTAPENEM 1 GM VIAL ONE (21:32)
[2017-08-22] MEDS ORDERED: FLUCONAZOLE IV 100 ML IVPB ONE (21:32)
[2017-08-23] MEDS ORDERED: SODIUM CHLORIDE 0.9% 1000ML 1,000 ML IVS ONE (00:47)
--- NOTE | 2017-08-23 01:08 | RAD ---
Chest single view on 08/23/2017 CLINICAL INDICATION: Tachycardia COMPARISON: 08/01/2017 FINDINGS: The patient face and chin obscures the lung apices. Single lead left subclavian pacemaker tip is in the right ventricle. Mild cardiomegaly is noted. Vascular calcification is noted within a prominent tortuous aorta. There is mild left basilar atelectasis or scarring. Lungs are otherwise clear. IMPRESSION: Likely no significant change in the appearance of the chest. Electronically signed by: Armen Santiago 08/23/2017 1:07 AM CDT
[2017-08-23 01:40] VITALS: BP 80/58; TEMP 99.5; O2SAT 97
[2017-08-23] MEDS ORDERED: NOREPINEPHRINE BITARTRATE 4 MG in DEXTROSE 5% 250ML 250 ML IVPB ONE (01:50)
[2017-08-23] MEDS ORDERED: CALCIUM GLUCONATE INJ 1 GM/10 ML VIAL IV ONE (01:52)
[2017-08-23] MEDS ORDERED: NOREPINEPHRINE BITARTRATE 4 MG/4 ML VIAL IVPB ONE (01:55)
[2017-08-23] MEDS ORDERED: DEXTROSE 5% 250ML 0 ML ONE (01:55)
[2017-08-23] MEDS ORDERED: SODIUM CHLORIDE 0.9% 100ML 0 ML IVPB ONE (02:02)
== END 2017-08-23 02:30 | disposition short-term general hospital (02) ==
LOC: ER 19:55
DX: I95.9 Hypotension, unspecified (principal); I48.91 Unspecified atrial fibrillation; R00.0 Tachycardia, unspecified; N39.0 Urinary tract infection, site not specified; I50.9 Heart failure, unspecified; I11.0 Hypertensive heart disease with heart failure; Z95.0 Presence of cardiac pacemaker; Z85.828 Personal history of other malignant neoplasm of skin; Z87.891 Personal history of nicotine dependence; Z79.899 Other long term (current) drug therapy
CPT/HCPCS: 71045; 80053; 81001; 82550; 82553; 82948; 83605; 83735; 83880; 84100; 84436; 84443; 84484; 85025; 85610; 85730; 87086; 93005; J1335; J1450; J7030; J7050

== ENCOUNTER 2017-08-31 12:20 | Inpatient (IN) | payer OTHER ==
--- NOTE | 2017-08-31 12:52 | HP ---
SUPERVISING PHYSICIAN: Ashish De Souza M.D. REASON FOR HOSPICE ADMISSION: Sepsis secondary to urinary tract infection and Clostridium Difficile infection. HISTORY OF PRESENT ILLNESS: Mr. Humphries is an 87 year-old male patient that in the last month has had a significant amount of hospitalizations due to infections. Initially he was admitted to [facility] on 08/01/17 with a diagnosis of sepsis due to Citrobacter. He was treated and discharged to [facility] on 08/06/17. He then presented back to the Emergency Room on 08/22/17 with hypotension and sepsis secondary to once again a urinary tract infection. He was in a septic shock state at which time he was transferred to [facility] for further treatment and evaluation. While at [facility], he was treated aggressively with antibiotics, however he failed to make any significant improvement and developed a Clostridium Difficile infection, and progressively declined in regards to his health. Yesterday the patient's family decided in conference that the patient would be best served by transferring him back to [facility] and placing him into inpatient hospice for care and comfort measures. The patient was transferred via EMS and now is being admitted to hospice inpatient under the direction of [facility] for care and comfort measures for septic shock with Clostridium Difficile infection. PAST MEDICAL HISTORY: 1. Atrial fibrillation on . 2. History of congestive heart failure with a chronic diastolic mechanism due to hypertension and most recent echocardiogram on 04/2015 with an ejection fraction of 60%. 3. Hyperlipidemia. 4. Chronic alcohol abuse. 5. Dementia. 6. Severely decreased hearing bilaterally. 7. Multiple hospitalizations for urinary tract infections and sepsis. PAST SURGICAL HISTORY: 1. Right kidney stone removal. 2. Detached retina in 2000. 3. Pacemaker implantation. HOME MEDICATIONS: Continued upon admission to hospice. ALLERGIES: NO KNOWN DRUG ALLERGIES. FAMILY HISTORY: Father at age 72 from myocardial infarction. Mother with a history of chronic obstructive pulmonary disease. 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 He is and has 3 children. He resides at [facility] in [place], [place]. He does have a history of smoking but previously quit in 1969. He had a significant history of alcohol abuse and prior to recent hospitalization was drinking up to 6 to 7 glasses of wine a day. REVIEW OF SYSTEMS: Unable to obtain secondary to the patient's unresponsiveness. PHYSICAL EXAMINATION: VITAL SIGNS: Temperature 97.8, pulse 105, irregular in atrial fibrillation with blood pressure 120/62, respirations 18, satting 95% on room air. Admission weight was 95.7 kg. GENERAL: The patient is very lethargic. Appears to be in no acute distress, resting comfortably but responds minimally to verbal stimulus. HEENT: Oropharynx was pink with some dry mucosal membranes but no lesions. NECK: Supple with no jugular venous distention noted. CHEST: Lungs were clear but significantly decreased bilaterally but no rhonchi , wheezing or rales were noted. CARDIOVASCULAR: Heart rate was slightly irregular with no palpitations, rubs or discernible murmurs. GASTROINTESTINAL: There was no tenderness on palpation. No rebound tenderness. Abdomen was soft but obese with normal bowel sounds. EXTREMITIES: Just trace of edema to bilateral lower extremities but no clubbing or cyanosis. NEUROLOGIC: He was obtunded and responded very minimally to oral and verbal stimulus, only opening his eyes minimally and unable to fully participate in the exam. LABORATORY: No laboratory. RADIOLOGY: No radiographic studies. PLAN: The patient is going to be admitted to hospice inpatient care under [facility]. He will be care and comfort measures and orders will be [facility]. After talking to the family , the plan is if the patient is able to stabilize and once arrangements have been made and equipment is in place at home, they would wish to take the patient home in the near future, therefore will provide care and comfort measures in anticipation of hopefully being able to discharge home. Until that point or until the patient's , will continue to monitor and treat appropriately as needed and be available for consultation or assistance. All care will be under the direction of [facility] care. #[id number] [facility]
[2017-08-31] MEDS: IV SET AND CAP CHANGE INJ INJ SCH (13:30)
--- NOTE | 2017-08-31 19:34 | PCM.CORE ---
Physician DVT/VTE - Contraindications Mechanical Device Contraindication: Treatment not indicated Medication Contraindication: Drug Tx Not Indicated - Hospice - Nurse DVT Assessment & Total Each Risk Factor Represents 3 Points: Age over 75 years, Medical PT with Hx of ME, CHF, Severe infection/sepsis Each Risk Factor Represents 1 Point: Medical PT at Bed Rest Each Risk Factor is 1 Point: Obesity (BMI >25) DVT Assessment Score: 8
[2017-08-31] MEDS: SODIUM CHLORIDE 0.9% (FLUSH) 10 ML SYG IV SCH (21:32)
[2017-09-01] MEDS: SODIUM CHLORIDE 0.9% (FLUSH) 10 ML SYG IV SCH ×2 (09:50→21:04)
[2017-09-01] MEDS: SCOPOLAMINE PATCH 1.5MG 1 EA TD SCH (11:44)
[2017-09-02] MEDS: SODIUM CHLORIDE 0.9% (FLUSH) 10 ML SYG IV SCH ×2 (09:00→21:00)
[2017-09-03] MEDS: MORPHINE SULFATE INJ 10 MG/ML VIAL IV PRN (15:27)
[2017-09-03] MEDS: SODIUM CHLORIDE 0.9% (FLUSH) 10 ML SYG IV SCH ×2 (15:28→21:45)
[2017-09-03] MEDS: IV SET AND CAP CHANGE INJ INJ SCH (17:08)
[2017-09-04] MEDS: MORPHINE SULFATE INJ 10 MG/ML VIAL IV PRN (14:01)
[2017-09-04] MEDS: SODIUM CHLORIDE 0.9% (FLUSH) 10 ML SYG IV SCH ×2 (14:01→21:45)
[2017-09-04] MEDS: SCOPOLAMINE PATCH 1.5MG 1 EA TD SCH (14:03)
[2017-09-05] MEDS: MORPHINE SULFATE INJ 10 MG/ML VIAL IV PRN ×2 (01:50→11:00)
[2017-09-05] MEDS: SODIUM CHLORIDE 0.9% (FLUSH) 10 ML SYG IV SCH ×2 (09:00→20:48)
[2017-09-05] MEDS ORDERED: MORPHINE SULFATE INJ 10 MG/ML VIAL ONE (15:09)
[2017-09-05] MEDS ORDERED: MORPHINE SULFATE INJ 10 MG/ML VIAL IV PRN (15:22)
[2017-09-06] MEDS: SODIUM CHLORIDE 0.9% (FLUSH) 10 ML SYG IV SCH ×2 (10:00→21:15)
[2017-09-06] MEDS: MORPHINE SULFATE INJ 10 MG/ML VIAL IV PRN ×2 (14:46→23:34)
[2017-09-06] MEDS: SODIUM CHLORIDE 0.9% (FLUSH) 10 ML SYG IV PRN (14:47)
[2017-09-06] MEDS: IV SET AND CAP CHANGE INJ INJ SCH (18:34)
[2017-09-07] MEDS: SODIUM CHLORIDE 0.9% (FLUSH) 10 ML SYG IV SCH ×2 (12:11→21:07)
[2017-09-07] MEDS: MORPHINE SULFATE INJ 10 MG/ML VIAL IV PRN (16:00)
[2017-09-07] MEDS: SCOPOLAMINE PATCH 1.5MG 1 EA TD SCH (16:01)
[2017-09-08] MEDS: MORPHINE SULFATE INJ 10 MG/ML VIAL IV PRN ×2 (13:35→23:33)
[2017-09-08] MEDS: SODIUM CHLORIDE 0.9% (FLUSH) 10 ML SYG IV SCH ×2 (14:56→20:59)
[2017-09-09] MEDS: MORPHINE SULFATE INJ 10 MG/ML VIAL IV PRN (20:11)
[2017-09-09] MEDS: SODIUM CHLORIDE 0.9% (FLUSH) 10 ML SYG IV SCH ×2 (21:10→21:11)
[2017-09-09] MEDS: IV SET AND CAP CHANGE INJ INJ SCH (21:11)
[2017-09-10 11:37] VITALS: BP 91/61; TEMP 98.3; O2SAT 98
[2017-09-10] MEDS: MORPHINE SULFATE INJ 10 MG/ML VIAL IV PRN (11:46)
[2017-09-10] MEDS: SODIUM CHLORIDE 0.9% (FLUSH) 10 ML SYG IV PRN (11:47)
--- NOTE | 2017-09-11 23:07 | DS ---
SUPERVISING PHYSICIAN: Manyn Hollingsworth M.D. DISCHARGE DIAGNOSIS: 1. Sepsis due to Clostridium Difficile infection. HISTORY OF PRESENT ILLNESS: This is an 87 year-old male patient that was in the hospital last month and has had a significant amount of hospitalizations due to multiple infections. Initially he was admitted to [facility] and diagnosed with sepsis due to Citrobacter. He was discharged to [facility]. He then came back to the Emergency Room on 08/22/17 with hypotension and sepsis again due to urinary tract infection. He was in a septic shock state and was transferred to [facility] for further treatment and evaluation. He was treated aggressively at [facility]. He did not make any significant improvement and developed Clostridium Difficile. He progressively declined in regards to his health. The patient's family decided that the patient would be best transferred back to [facility] and placed him in inpatient hospital care for care and comfort measures. He was admitted to the hospital for inpatient hospice care under [facility]. HOSPITAL COURSE: He has been in the hospital all week and it was decided that he would be discharged to [facility] to continue with [facility]. DISCHARGE PLAN: The patient will be discharged to [facility] under the direction of [facility]. They will continue all of his orders and medications. All problems should be addressed to [facility]. Discharge medications are per hospice orders. #[id number] [facility]
== END 2017-09-10 13:00 | disposition hospice, inpatient (51) | DRG 871 ==
LOC: MS 12:20 → UNDOADMIN 12:20
PROVIDERS: ADMIT Nurse Practitioner Family; ATTEND Nurse Practitioner Acute Care
DX: A41.9 Sepsis, unspecified organism (principal); R65.21 Severe sepsis with septic shock; A04.72 Enterocolitis due to Clostridium difficile, not specified as recurrent; N39.0 Urinary tract infection, site not specified; I50.32 Chronic diastolic (congestive) heart failure; I48.91 Unspecified atrial fibrillation; I11.0 Hypertensive heart disease with heart failure; E78.5 Hyperlipidemia, unspecified; F03.90 Unspecified dementia, unspecified severity, without behavioral disturbance, psychotic disturbance, mood disturbance, and anxiety; H91.90 Unspecified hearing loss, unspecified ear; Z66 Do not resuscitate; Z95.0 Presence of cardiac pacemaker; Z79.02 Long term (current) use of antithrombotics/antiplatelets; Z87.891 Personal history of nicotine dependence